=== PATIENT | female | born 1995 | race Caucasian/White ===

== ENCOUNTER 2018-01-09 20:24 | Inpatient (IN) | payer MEDICAID ==
[~2018-01-09] VITALS: Ht 152.4 cm; Wt 68.0 kg
[2018-01-09] MEDS ORDERED: ACTIVATED CHARCOAL 50 G/240 ML TUBE PO ONE (21:00)
[2018-01-09] MEDS ORDERED: ACETYLCYSTEINE 200MG/ML 20% VIAL 30ML (INJ) IV ONE (21:15)
[2018-01-09] MEDS ORDERED: DEXT 5% IV NR ×2 (21:30→23:00)
[2018-01-09] MEDS ORDERED: ACETYLCYSTEINE IV NR ×2 (21:30→23:00)
[2018-01-09] MEDS ORDERED: WATER IV NR ×2 (21:30→23:00)
[2018-01-09 22:11] LABS: CLARITY URINE CLEAR (CLEAR); COLOR URINE YELLOW (YELLOW); KETONES URINE 1+ (NEGATIVE); LEUKOCYTE ESTERASE URINE 1+ (NEGATIVE); NITRITE URINE NEGATIVE (NEGATIVE); OCCULT BLOOD URINE NEGATIVE (NEGATIVE); PH URINE 5.5 (4.5-8.0); PROTEIN URINE NEGATIVE (NEGATIVE); SPECIFIC GRAVITY URINE 1.016 (1.005-1.030); UROBILINOGEN URINE 0.2 E.U./dL (0.2-1.0)
[2018-01-09 22:12] LABS: BASOPHILS % 0.3 % (0.0-2.0); EOSINOPHILS % 0.4 % (0.0-5.0); HEMATOCRIT. 37.4 % (36.0-48.0); HEMOGLOBIN. 12.8 g/dL (12.0-16.0); LYMPHOCYTES % 21.4 % (20.0-50.0); MEAN CORPUSCULAR HEMOGLOBIN 28.4 pg (28.0-32.0); MEAN CORPUSCULAR VOLUME 83.1 fL (81.0-99.0); MONOCYTES % 5.6 % (2.0-8.0); NEUTROPHILS % 72.3 % (40.0-76.0); PLATELET 304 x1000/uL (130-400)
[2018-01-09 22:15] LABS: CHLORIDE 105 mEq/L (98-107)
[2018-01-09] MEDS ORDERED: SODIUM CHLORIDE 0.9% 1,000 ML IV STA (22:15)
[2018-01-09] MEDS ORDERED: ONDANSETRON HCL 4MG/2ML INJ IV STA (22:15)
[2018-01-09 22:23] LABS: ETHANOL BLOOD 103 mg/dL
[2018-01-09 22:32] LABS: *AMPHETAMINES SCREEN URINE NEGATIVE (NEGATIVE)
[2018-01-09 22:33] LABS: *BARBITURATES SCREEN URINE NEGATIVE (NEGATIVE); *BENZODIAZEPINES SCREEN URINE NEGATIVE (NEGATIVE); *COCAINE SCREEN URINE NEGATIVE (NEGATIVE); METHADONE URINE SCREEN NEGATIVE (NEGATIVE); OPIATES URINE SCREEN NEGATIVE (NEGATIVE); PHENCYCLIDINE URINE SCREEN NEGATIVE (NEGATIVE)
[2018-01-09 22:34] LABS: CANNABINOID URINE SCREEN NEGATIVE (NEGATIVE)
[2018-01-10] MEDS ORDERED: WATER IV NR (03:00)
[2018-01-10] MEDS ORDERED: DEXTROSE 5% IV NR (03:00)
[2018-01-10] MEDS ORDERED: ACETYLCYSTEINE IV NR (03:00)
[2018-01-10] MEDS ORDERED: SODIUM CHLORIDE 0.9% 1,000 ML IV SCH ×2 (06:59→07:00)
[2018-01-10] MEDS ORDERED: ONDANSETRON HCL 4MG/2ML INJ IV PRN ×2 (07:00)
[2018-01-10 11:39] LABS: CHLORIDE 105 mEq/L (98-107)
[2018-01-11 04:43] LABS: BASOPHILS % 0.4 % (0.0-2.0); EOSINOPHILS % 1.7 % (0.0-5.0); HEMOGLOBIN. 11.7 g/dL (12.0-16.0); LYMPHOCYTES % 45.3 % (20.0-50.0); MEAN CORPUSCULAR HEMOGLOBIN 28.4 pg (28.0-32.0); MEAN CORPUSCULAR VOLUME 82.4 fL (81.0-99.0); MEAN PLATELET VOLUME 7.8 fl (7.4-10.4); MONOCYTES % 5.2 % (2.0-8.0); NEUTROPHILS % 47.4 % (40.0-76.0); PLATELET 280 x1000/uL (130-400); RED BLOOD CELL COUNT 4.13 mill/uL (4.2-5.4); RED CELL DISTRIBUTION WIDTH 13.9 % (11.6-14.6)
[2018-01-11 04:54] LABS: PHOSPHORUS 3.1 mg/dL (2.5-4.9)
[2018-01-11 05:06] LABS: CHLORIDE 109 mEq/L (98-107)
[2018-01-11] MEDS: POTASSIUM CHLORIDE 20MEQ TABLET SR PO SCH ×2 (16:13→16:17)
[2018-01-11] MEDS ORDERED: POTASSIUM CHLORIDE INJ 40 MEQ in DEXT 5% WATER 500 ML IV SCH (16:30)
[2018-01-11] MEDS ORDERED: POTASSIUM CHLORIDE 20MEQ TABLET SR PO NR (17:00)
[2018-01-11] MEDS ORDERED: LORAZEPAM 0.5MG TABLET PO PRN (17:15)
[2018-01-11] MEDS ORDERED: ONDANSETRON HCL 4MG/2ML INJ IV PRN (17:15)
[2018-01-11] MEDS ORDERED: MAGNESIUM/ALUMINUM HYDROXIDE/SIMETHICONE 30ML UDC PO PRN (17:15)
[2018-01-11 17:30] VITALS: BP 114/68
[2018-01-11] MEDS ORDERED: MAGNESIUM 2 G PREMIX 50 ML IV NR (18:00)
[2018-01-11] MEDS ORDERED: D (18:11)
[2018-01-11 18:30] VITALS: BP 108/65
[2018-01-11 20:00] VITALS: BP 110/75
[2018-01-11] MEDS: SODIUM CHLORIDE 0.9% INJ 3ML FLUSH IVF SCH (21:17)
[2018-01-11] MEDS ORDERED: POTASSIUM CHLORIDE 20MEQ TABLET SR PO SCH (22:00)
[2018-01-12] VITALS: BP 106/58
[2018-01-12 04:00] VITALS: BP 92/56
[2018-01-12] MEDS: SODIUM CHLORIDE 0.9% INJ 3ML FLUSH IVF SCH ×3 (06:11→21:17)
[2018-01-12 08:00] VITALS: BP 102/58
[2018-01-12 12:00] VITALS: BP 105/64
[2018-01-12 16:00] VITALS: BP 114/66
[2018-01-12 20:00] VITALS: BP 114/67
[2018-01-13] VITALS (7 sets, daily range): BP systolic 87–139; BP diastolic 46–79
[2018-01-13] MEDS: SODIUM CHLORIDE 0.9% INJ 3ML FLUSH IVF SCH ×2 (06:39→14:29)
== END 2018-01-13 22:00 | disposition short-term general hospital (02) | DRG 817 ==
LOC: ER 20:24 → 6EST 23:22 → EDBEDREQTM 23:37 → EDBEDREQ 23:37 → EDBEDREQSVC 01-11 00:30 → ENRESERV 01-11 15:34
PROVIDERS: ADMIT Internal Medicine; ATTEND Internal Medicine
DX: T39.1X2A Poisoning by 4-Aminophenol derivatives, intentional self-harm, initial encounter (principal); E87.6 Hypokalemia; F32.9 Major depressive disorder, single episode, unspecified; Z91.5 Personal history of self-harm; Y92.89 Other specified places as the place of occurrence of the external cause
CPT/HCPCS: 36415; 80051; 80305; 80307; 80329; 81025; 82962; 83735; 84100; 93005; 96365; 96366; 96367; 96375; 96376; 99284; 99291; G0482; J0132; J2405; J3475; J3480; J7030; J7060

== ENCOUNTER 2019-02-26 22:27 | Emergency (ER) | payer MEDICAID ==
[~2019-02-26] VITALS: Ht 154.9 cm; Wt 68.0 kg
[2019-02-27 02:18] LABS: BASOPHILS % 0.5 % (0.0-2.0); EOSINOPHILS % 2.8 % (0.0-5.0); HEMATOCRIT. 33.9 % (36.0-48.0); HEMOGLOBIN. 11.5 g/dL (12.0-16.0); LYMPHOCYTES % 32.3 % (20.0-50.0); MEAN CORPUSCULAR HEMOGLOBIN 27.2 pg (28.0-32.0); MEAN CORPUSCULAR VOLUME 80.5 fL (81.0-99.0); MEAN PLATELET VOLUME 7.8 fl (7.4-10.4); NEUTROPHILS % 57.4 % (40.0-76.0); PLATELET 306 x1000/uL (130-400); RED CELL DISTRIBUTION WIDTH 14.4 % (11.6-14.6)
[2019-02-27 02:35] LABS: CHLORIDE 108 mEq/L (98-107)
[2019-02-27 02:36] LABS: CLARITY URINE TURBID (CLEAR); COLOR URINE RED (YELLOW); KETONES URINE NEGATIVE (NEGATIVE); LEUKOCYTE ESTERASE URINE 2+ (NEGATIVE); NITRITE URINE NEGATIVE (NEGATIVE); OCCULT BLOOD URINE 3+ (NEGATIVE); PH URINE 5.5 (4.5-8.0); PROTEIN URINE 2+ (NEGATIVE); SPECIFIC GRAVITY URINE 1.039 (1.005-1.030); UROBILINOGEN URINE 0.2 E.U./dL (0.2-1.0)
[2019-02-27] MEDS ORDERED: POTASSIUM CHLORIDE 20MEQ TABLET SR PO ONE (02:45)
[2019-02-27 02:47] LABS: B-HCG QUANTITATIVE 487 mIU/mL (<3)
[2019-02-27 05:32] VITALS: BP 112/69
== END 2019-02-27 05:34 | disposition home or self-care (01) ==
LOC: ER 22:27
DX: O03.9 Complete or unspecified spontaneous abortion without complication (principal); O23.41 Unspecified infection of urinary tract in pregnancy, first trimester; Z3A.01 Less than 8 weeks gestation of pregnancy
CPT/HCPCS: 36415; 76801; 76817; 80053; 81003; 81025; 84702; 85025; 86850; 86900; 86901; 87086; 99284; Z7610

== ENCOUNTER 2023-09-14 07:35 | Emergency (ER) | payer MEDICAID ==
[~2023-09-14] VITALS: Ht 152.4 cm; Wt 64.0 kg
[2023-09-14 07:47] VITALS: O2SAT 96
[2023-09-14] MEDS ORDERED: KETOROLAC 30MG/ML VIAL IV STA (08:00)
[2023-09-14] MEDS ORDERED: DICYCLOMINE 10 MG/5 ML ORAL SYR PO ONE (08:00)
[2023-09-14] MEDS ORDERED: MAGNESIUM/ALUMINUM HYDROXIDE/SIMETHICONE 30ML UDC PO ONE (08:00)
[2023-09-14] MEDS ORDERED: ONDANSETRON HCL 4MG/2ML INJ IV STA (08:00)
[2023-09-14 08:23] LABS: CHLORIDE 102 mEq/L (98-107); POTASSIUM 3.8 mEq/L (3.5-5.1); SODIUM 135 mEq/L (136-145)
[2023-09-14 08:24] LABS: CARBON DIOXIDE 26 mEq/L (21-32)
[2023-09-14 08:25] LABS: CALCIUM 9.1 mg/dL (8.7-10.4)
[2023-09-14 08:29] LABS: CREATININE 0.6 mg/dL (0.6-1.0); GLUCOSE 112 mg/dL (70-105); UREA NITROGEN BLOOD 7 mg/dL (9-23)
[2023-09-14 08:39] LABS: BASOPHILS % 0.2 % (0.0-2.0); DIFFERENTIAL COMMENT 0; HEMATOCRIT. 37.1 % (36.0-48.0); HEMOGLOBIN. 12.3 g/dL (12.0-16.0); LYMPHOCYTES % 14.3 % (20.0-50.0); MEAN CORPUSCULAR HEMOGLOBIN 26.4 pg (28.0-32.0); MEAN CORPUSCULAR HGB CONC 33.3 g/dL (31.0-37.0); MEAN CORPUSCULAR VOLUME 79.5 fL (81.0-99.0); MEAN PLATELET VOLUME 7.8 fl (7.4-10.4); MONOCYTES % 9.2 % (2.0-8.0); NEUTROPHILS % 75.3 % (40.0-76.0); PLATELET 360 x1000/uL (130-400); RED BLOOD CELL COUNT 4.67 mill/uL (4.2-5.4); RED CELL DISTRIBUTION WIDTH 14.6 % (11.6-14.6); WHITE BLOOD COUNT 8.7 x1000/uL (4.5-11.0)
[2023-09-14 08:41] LABS: HCG SCREEN NEGATIVE
[2023-09-14 10:09] LABS: TROPONIN I HIGH SENSITIVITY < 4 ng/L (3.0-34)
[2023-09-14] MEDS ORDERED: TOPUD PO (10:47)
[2023-09-14 11:18] VITALS: BP 130/87; PULSE 80; RESP 20; TEMP 98.6
[2023-09-14] MEDS: ACETAMINOPHEN 325MG TABLET PO ONE (11:25)
[2023-09-14] MEDS: MAGNESIUM/ALUMINUM HYDROXIDE/SIMETHICONE 30ML UDC PO NR (11:25)
[2023-09-14] MEDS: ONDANSETRON HCL 4MG TABLET PO ONE (11:26)
[2023-09-14] MEDS: DICYCLOMINE HCL 10MG CAPSULE PO NR (11:26)
[2023-09-14] MEDS ORDERED: ONDANSETRON HCL 4MG/2ML INJ IV NR (12:00)
[2023-09-14] MEDS ORDERED: KETOROLAC 30MG/ML VIAL IV NR (12:00)
== END 2023-09-14 11:35 | disposition home or self-care (01) ==
LOC: ER 07:35
DX: R07.89 Other chest pain (principal); R11.10 Vomiting, unspecified; F32.9 Major depressive disorder, single episode, unspecified
CPT/HCPCS: 99285; 71045; 80048; 84703; 83880; 85025; 84484; 36415; 93005; Q0162

== ENCOUNTER 2023-09-30 06:46 | Day surgery (SDC) | payer MEDICAID ==
[~2023-09-30] VITALS: Ht 157.5 cm; Wt 79.0 kg
[~2023-09-30 06:46] MED LIST: TOPUD PO
[2023-09-30 06:58] VITALS: O2SAT 99
[2023-09-30 07:31] LABS: BASOPHILS % 0.2 % (0.0-2.0); DIFFERENTIAL COMMENT 0; EOSINOPHILS % 0.3 % (0.0-5.0); HEMATOCRIT. 35.8 % (36.0-48.0); LYMPHOCYTES % 8.8 % (20.0-50.0); MEAN CORPUSCULAR HEMOGLOBIN 25.8 pg (28.0-32.0); MEAN CORPUSCULAR HGB CONC 33.7 g/dL (31.0-37.0); MEAN CORPUSCULAR VOLUME 76.8 fL (81.0-99.0); MEAN PLATELET VOLUME 7.8 fl (7.4-10.4); MONOCYTES % 4.3 % (2.0-8.0); NEUTROPHILS % 86.4 % (40.0-76.0); PLATELET 274 x1000/uL (130-400); RED BLOOD CELL COUNT 4.66 mill/uL (4.2-5.4); RED CELL DISTRIBUTION WIDTH 14.9 % (11.6-14.6); WHITE BLOOD COUNT 11.5 x1000/uL (4.5-11.0)
[2023-09-30 07:37] LABS: CHLORIDE 103 mEq/L (98-107); POTASSIUM 3.8 mEq/L (3.5-5.1); SODIUM 135 mEq/L (136-145)
[2023-09-30 07:38] LABS: CARBON DIOXIDE 27 mEq/L (21-32)
[2023-09-30 07:43] LABS: CREATININE 0.5 mg/dL (0.6-1.0); GLUCOSE 150 mg/dL (70-105)
[2023-09-30 07:51] LABS: UREA NITROGEN BLOOD < 5 mg/dL (9-23)
[2023-09-30 09:24] LABS: ALANINE AMINOTRANSFERASE 99 IU/L (10-49); ALBUMIN 4.5 g/dL (3.2-4.8); ASPARTATE AMINOTRANSFERASE 53 IU/L (<34)
[2023-09-30 09:25] LABS: BILIRUBIN DIRECT 0.1 mg/dL (<=3.0); BILIRUBIN TOTAL 0.5 mg/dL (0.1-1.0); PROTEIN TOTAL 7.4 g/dL (6.0-8.3)
[2023-09-30 10:05] LABS: HCG SCREEN NEGATIVE
[2023-09-30] MEDS: ONDANSETRON 4MG ODT PO ONE (10:20)
[2023-09-30] MEDS: IBUPROFEN 800MG TABLET PO ONE (10:20)
[2023-09-30 10:37] LABS: CLARITY URINE CLOUDY (CLEAR); COLOR URINE DARK YELLOW (YELLOW); GLUCOSE URINE NEGATIVE (NEGATIVE); KETONES URINE 4+ (NEGATIVE); LEUKOCYTE ESTERASE URINE NEGATIVE (NEGATIVE); NITRITE URINE NEGATIVE (NEGATIVE); OCCULT BLOOD URINE NEGATIVE (NEGATIVE); PH URINE 7.5 (4.5-8.0); PROTEIN URINE 1+ (NEGATIVE); SPECIFIC GRAVITY URINE 1.023 (1.005-1.030)
[2023-09-30] MEDS ORDERED: MORPHINE SULFATE 4 MG/ML INJ (FOR IV/IM USE) IV NR (10:50)
[2023-09-30] MEDS ORDERED: MORPHINE SULFATE 2 MG/ML INJ (NOT FOR IM USE) IV NR (10:52)
[2023-09-30] MEDS: METRONIDAZOLE 500 MG PREMIX 100 ML IV ONE (11:00)
[2023-09-30] MEDS: CEFTRIAXONE 1GM/50ML 50 ML IV ONE (11:05)
[2023-09-30] MEDS: ONDANSETRON HCL 4MG/2ML INJ IV NR (11:05)
[2023-09-30] MEDS: SODIUM CHLORIDE 0.9% 1,000 ML IV ONE (11:06)
[2023-09-30 11:44] LABS: PARTIAL THROMBOPLASTIN TIME 27.9 sec (23.4-31.0)
[2023-09-30 11:52] LABS: MUCUS URINE 2+ /lpf (< = 2+); SQUAMOUS EPITHELIAL CELL URINE 1+ /lpf (RARE/1+); WBC URINE 0-2 /hpf (0-2)
[2023-09-30 11:54] LABS: BACTERIA URINE 1+; RBC URINE NONE SEEN /hpf (0-2)
[2023-09-30] MEDS ORDERED: SKIN ADHESIVE 0.7 GM EA TOP ONE ×2 (12:53→15:02)
[2023-09-30] MEDS ORDERED: BUPIVACAINE HCL/PF 0.5% (5MG/ML) 10ML ONE (12:53)
[2023-09-30 13:30] VITALS: BP 104/60; PULSE 64; RESP 12; TEMP 36.94740; O2SAT 99
[2023-09-30] MEDS ORDERED: FENTANYL CITRATE/PF 50MCG/ML 2ML VIAL IV PRN (13:45)
[2023-09-30] MEDS ORDERED: HYDROMORPHONE HCL/PF 1MG/ML INJ IV PRN (13:45)
[2023-09-30] MEDS ORDERED: ONDANSETRON HCL 4MG/2ML INJ IV PRN (13:45)
[2023-09-30] MEDS ORDERED: METRONIDAZOLE 500 MG PREMIX 100 ML IV NR (14:00)
[2023-09-30] MEDS ORDERED: SUGAMMADEX SODIUM 200MG/2ML VIAL IV ONE (14:28)
[2023-09-30] MEDS ORDERED: ACETAMINOPHEN 1000MG/100ML 100 ML IV NR (14:45)
[2023-09-30] MEDS ORDERED: T3 PO (16:46)
== END 2023-09-30 17:40 | disposition home or self-care (01) ==
LOC: ER 06:46 → EDBEDREQ 13:24 → EDBEDREQTM 13:24 → OR 15:15
PROVIDERS: ATTEND Surgery
DX: K35.80 Unspecified acute appendicitis (principal); Z79.899 Other long term (current) drug therapy; Z98.890 Other specified postprocedural states
CPT/HCPCS: 44970; 80076; 80048; 81003; 84703; 83690; 85025; 85610; 85730; 88304; 74176; 99285; 36415; Q0162; J3490 ×2; J0696; J2405; J7030; J0131